=== PATIENT | male | born 1940 | race Caucasian/White ===

== ENCOUNTER 2018-03-10 10:22 | Day surgery (SDC) | payer OTHER ==
[~2018-03-10] VITALS: Ht 170.2 cm; Wt 81.6 kg
[~2018-03-10 10:22] MED LIST: ALEVE220 MG PO; NORVASC2.5 MG PO; PRILOSEC10 MG PO; TOPROL XL50 MG PO; VITAMIN B-121000 MC3 PO
[2018-03-10 10:51] VITALS: BP 152/72
[2018-03-10 13:32] VITALS: BP 145/79
[2018-03-10 13:55] VITALS: BP 179/78
== END 2018-03-10 14:00 | disposition home or self-care (01) ==
LOC: SDC 10:22
PROC: 08B53ZZ Excision of Left Vitreous, Percutaneous Approach (ICD-10-PCS; principal; 2018-03-10)
DX: H43.12 Vitreous hemorrhage, left eye (principal); H44.002 Unspecified purulent endophthalmitis, left eye; I10 Essential (primary) hypertension; K21.9 Gastro-esophageal reflux disease without esophagitis; E78.00 Pure hypercholesterolemia, unspecified; Z85.46 Personal history of malignant neoplasm of prostate; Z87.891 Personal history of nicotine dependence
CPT/HCPCS: J0690; J0713; J2250; J2405